=== PATIENT | male | born 2005 | race Caucasian/White ===

== ENCOUNTER → 2025-03-18 | Emergency (ER) | payer OTHER ==
[~2025-03-18] VITALS: Ht 177.8 cm; Wt 61.2 kg
[~2025-03-18] MED LIST: LIDOCAINE 1%-EPI 1:100,000 20 ML VIAL ONE; NEOMY/BACITRA/POLYMYXIN B OINT UD PACKET TP ONE; TDAP DIPH,PERTUSS,TET VAC/PF 0.5 ML DISP.SYRIN IM ONE
[2025-03-18 15:47] VITALS: BP 128/77
[2025-03-18] MEDS: NEOMY/BACITRA/POLYMYXIN B OINT UD PACKET TP ONE (16:47)
[2025-03-18] MEDS: TDAP DIPH,PERTUSS,TET VAC/PF 0.5 ML DISP.SYRIN IM ONE (16:49)
[2025-03-18] MEDS: LIDOCAINE 1%-EPI 1:100,000 20 ML VIAL IJ ONE (16:55)
[2025-03-18 18:26] VITALS: BP 124/69; TEMP 98.1; O2SAT 99
== END | disposition home or self-care (01) ==
LOC: ER 15:44
DX: S61.512A Laceration without foreign body of left wrist, initial encounter (principal); Z91.010 Allergy to peanuts; W25.XXXA Contact with sharp glass, initial encounter; Y93.89 Activity, other specified; Y92.89 Other specified places as the place of occurrence of the external cause; Y99.9 Unspecified external cause status
CPT/HCPCS: 12001; 90471; 90715; 99283; J3490; A4606; A4663